=== PATIENT | male | born 1995 | race Caucasian/White ===

== ENCOUNTER 2019-11-11 20:36 | Emergency (ER) | payer OTHER ==
[2019-11-11] MEDS ORDERED: FENTANYL CITR 100 MCG/2 ML ONE (21:01)
--- NOTE | 2019-11-11 23:30 | ER ---
Nurse's Notes [facility] Name: Binh Us Age: 23 yrs Sex: Male : 1995 Arrival Date: 11/11/2019 Time: 20:42 Bed 5 Private MD: Diagnosis: Pain in left hip;Fall on same level from slipping, tripping and stumbling Presentation: 11/10 20:42 Chief complaint: EMS states: "The pt was attepmting to sit down in a chair when he jd3 twisted the wrong way and fell. 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 no LOC or report of any other injury.". Coronavirus screen: At this time, the client does not indicate any symptoms associated with coronavirus-19. Ebola Screen: Patient negative for fever greater than or equal to 101.5 degrees Fahrenheit, and additional compatible Ebola Virus Disease symptoms. Initial Sepsis Screen: Does the patient meet any 2 criteria? No. Patient's initial sepsis screen is negative. Does the patient have a suspected source of infection? No. Patient's initial sepsis screen is negative. Risk Assessment: Do you want to hurt yourself or someone else? Patient reports no desire to harm self or others. Onset of symptoms was November 11, 2019. 20:42 Method Of Arrival: EMS: [facility] jd3 20:42 Acuity: JERRY 4 jd3 Historical: - Allergies: 20:45 Morphine; jd3 - Home Meds: 20:45 None [Active]; jd3 - PSHx: 20:45 left hip sx; jd3 - Immunization history:: Adult Immunizations up to date. - Social history:: Smoking status: Patient reports the use of cigarette tobacco products, smokes one pack cigarettes per day. Screenin:55 Abuse screen: Denies threats or abuse. Denies injuries from another. Nutritional rr5 screening: No deficits noted. Tuberculosis screening: No symptoms or risk factors identified. Fall Risk Fall in past 12 months (25 points). Gait- Impaired (20 pts.). Total Dent Fall Scale indicates High Risk Score (45 or more points). Fall prevention measures have been instituted. Side Rails Up X 2 Placed Close to Nursing Station Frequent Obs/Assessments Occuring As available patient and family educated on Fall Prevention Program and Strategies. Assessment: 20:40 General: Appears in no apparent distress. uncomfortable, Behavior is calm, cooperative, rr5 appropriate for age. 20:40 Pain: Complains of pain in left lower back Pain radiates to left leg Pain currently is rr5 5 out of 10 on a pain scale. Quality of pain is described as aching, Pain began suddenly, Is intermittent. Neuro: Level of Consciousness is awake, alert, obeys commands, Oriented to person, place, time, situation. Cardiovascular: Capillary refill < 3 seconds Patient's skin is warm and dry. Respiratory: Airway is patent Respiratory effort is even, unlabored, Respiratory pattern is regular, symmetrical. GI: No signs and/or symptoms were reported involving the gastrointestinal system. : No signs and/or symptoms were reported regarding the genitourinary system. EENT: No signs and/or symptoms were reported regarding the EENT system. Derm: Skin is intact, is healthy with good turgor, Skin temperature is warm. Musculoskeletal: Capillary refill < 3 seconds, Reports pain in left lower back. 22:17 Reassessment: Patient and/or family updated on plan of care and expected duration. Pain ea level reassessed. Patient is alert, oriented x 3, equal unlabored respirations, skin warm/dry/pink. 22:58 Reassessment: Patient appears in no apparent distress at this time. Patient is alert, rr5 oriented x 3, equal unlabored respirations, skin warm/dry/pink. Patient states symptoms have improved. 11/11 00:15 Reassessment: Patient appears in no apparent distress at this time. Patient is alert, rr5 oriented x 3, equal unlabored respirations, skin warm/dry/pink. discharge instruction given and explained without complaints made. awaiting for the CT and xray copy Patient states symptoms have improved. Vital Signs: 11/10 20:45 BP 168 / 101; Pulse 103; Resp 19 S; Temp 99.2(O); Pulse Ox 100% on R/A; Weight 95.25 kg jd3 (R); Height 5 ft. 8 in. (172.72 cm) (R); Pain 5/10; 22:00 BP 155 / 78; Pulse 100; Resp 16; Pulse Ox 98% ; Pain 4/10; rr5 22:58 BP 137 / 89; Pulse 92; Resp 17; Pulse Ox 99% ; Pain 3/10; rr5 11/11 00:00 BP 121 / 85; Pulse 90; Resp 16; Pulse Ox 98% on R/A; rr5 11/10 20:45 Body Mass Index 31.93 (95.25 kg, 172.72 cm) jd3 ED Course: 11/10 20:42 Patient arrived in ED. jd3 20:43 Simba Alcala PA is PHCP. cp 20:43 Mariano Kim MD is Attending Physician. cp 20:44 Triage completed. jd3 20:45 David Kohler RN is Primary Nurse. rr5 20:46 Arm band placed on. jd3 20:50 Missed attempt(s): 20 gauge in right antecubital area. ea 20:55 Patient has correct armband on for positive identification. Bed in low position. Call rr5 light in reach. Side rails up X2. Pulse ox on. NIBP on. 21:17 Inserted saline lock: 20 gauge in right wrist, using aseptic technique. rr5 21:28 XRAY Pelvis In Process Unspecified. EDMS 21:28 XRAY Hip LEFT 2 view In Process Unspecified. EDMS 22:08 CT Pelvis wo Cont In Process Unspecified. EDMS 11/11 00:15 No provider procedures requiring assistance completed. IV discontinued, intact, rr5 bleeding controlled, No redness/swelling at site. Pressure dressing applied. Administered Medications: 11/10 21:17 Drug: fentaNYL (PF) 25 mcg {Note: rass 0.} Route: IVP; Site: right wrist; rr5 22:20 Follow up: Response: No adverse reaction; RASS: Alert and Calm (0) rr5 23:27 Drug: TORadol - Ketorolac 15 mg Route: IVP; Site: right forearm; ea 11/11 00:15 Follow up: Response: No adverse reaction; Pain is decreased rr5 00:01 Not Given (Other Intervention Used): fentaNYL (PF) 25 mcg IVP once; RASS on ADMIN: rr5 Combtv4, Very Agttd3, Agttd2, Rstlss1, AlertClm0, Drwsy-1, Lt Sdtn-2, Mod Sdtn-3, Dp Sdtn-4, UnArsble-5 Outcome: 11/10 23:29 Discharge ordered by . flory 11/11 00:15 Discharged to home via wheelchair. rr5 Condition: stable Discharge instructions given to patient, Instructed on discharge instructions, follow up and referral plans. medication usage, Demonstrated understanding of instructions, follow-up care, medications, Prescriptions given X 2. 00:34 Patient left the ED. rr5 Signatures: Dispatcher [employer] EDMS Simba Alcala PA PA cp Antunez, Elena RN Joel Silverman ea, RN RN jDavid Harrison RN RN rr5
--- NOTE | 2019-11-11 23:30 | EDPHYS ---
[facility] Name: Binh Us Age: 23 yrs Sex: Male : 1995 Arrival Date: 11/11/2019 Time: 20:42 Bed 5 Private MD: ED Physician Mariano Kim HPI: 11/10 21:00 This 23 yrs old Male presents to ER via EMS with complaints of left hip pain. cp 21:00 The patient or guardian reports decreased range of motion, pain. sustained from a fall, cp from a standing position, The patient is not able to ambulate. Patient is not able to bear weight. The complaints affect the left hip. Onset: The symptoms/episode began/occurred just prior to arrival. 21:00 Associated signs and symptoms: Loss of consciousness: the patient experienced no loss cp of consciousness, Pertinent negatives: low back pain. Historical: - Allergies: 20:45 Morphine; jd3 - Home Meds: 20:45 None [Active]; jd3 - PSHx: 20:45 left hip sx; jd3 - Immunization history:: Adult Immunizations up to date. - Social history:: Smoking status: Patient reports the use of cigarette tobacco products, smokes one pack cigarettes per day. ROS: 21:05 MS/extremity: Positive for decreased range of motion, pain, of the left hip, Negative cp for deformity, paresthesias. 21:05 Constitutional: Negative for body aches, chills, fever. cp 21:05 Neck: Negative for pain with movement, pain at rest, stiffness. 21:05 Cardiovascular: Negative for chest pain, palpitations. 21:05 Respiratory: Negative for cough, shortness of breath, wheezing. 21:05 Abdomen/GI: Negative for abdominal pain, nausea, vomiting, and diarrhea. 21:05 Back: Negative for pain at rest, pain with movement, radiated pain. 21:05 Neuro: Negative for altered mental status, headache, loss of consciousness, syncope. 21:05 All other systems are negative. Exam: 21:10 Constitutional: The patient appears in no acute distress, alert, awake, non-toxic, well cp developed, well nourished, uncomfortable. 21:10 Head/Face: Normocephalic, atraumatic. cp 21:10 Neck: C-spine: vertebral tenderness, is not appreciated, crepitus, is not appreciated, ROM/movement: is normal, is supple, without pain, no range of motions limitations. 21:10 Chest/axilla: Inspection: normal, Palpation: is normal, no crepitus, no tenderness. 21:10 Cardiovascular: Rate: tachycardic, Rhythm: regular. 21:10 Respiratory: the patient does not display signs of respiratory distress, Respirations: normal. 21:10 Abdomen/GI: Inspection: abdomen appears normal, Palpation: abdomen is soft and non-tender, in all quadrants. 21:10 Back: pain, is absent. 21:10 Musculoskeletal/extremity: Extremities: grossly normal except: noted in the left hip: decreased ROM, pain, tenderness, There is no evidence of deformity, ROM: limited passive range of motion due to pain, in the left hip, Perfusion: the extremity is normally perfused throughout, Sensation intact. 21:10 Neuro: Orientation: to person, place \T\ time. Mentation: is normal. Vital Signs: 20:45 BP 168 / 101; Pulse 103; Resp 19 S; Temp 99.2(O); Pulse Ox 100% on R/A; Weight 95.25 kg jd3 (R); Height 5 ft. 8 in. (172.72 cm) (R); Pain 5/10; 22:00 BP 155 / 78; Pulse 100; Resp 16; Pulse Ox 98% ; Pain 4/10; rr5 22:58 BP 137 / 89; Pulse 92; Resp 17; Pulse Ox 99% ; Pain 3/10; rr5 11/11 00:00 BP 121 / 85; Pulse 90; Resp 16; Pulse Ox 98% on R/A; rr5 11/10 20:45 Body Mass Index 31.93 (95.25 kg, 172.72 cm) jd3 MDM: 11/10 20:55 Patient medically screened. cp 21:00 Differential diagnosis: hip fracture, intertrochanteric fracture, femoral neck cp fracture, femoral shaft fracture, contusion, dislocation. 23:28 Data reviewed: vital signs, nurses notes, radiologic studies, CT scan, plain films, I cp have discussed the patient's presentation/case with the attending Emergency Department Physician; and as a result, I will discharge patient. 23:28 Counseling: I had a detailed discussion with the patient and/or guardian regarding: the cp historical points, exam findings, and any diagnostic results supporting the discharge/admit diagnosis, radiology results, to return to the emergency department if symptoms worsen or persist or if there are any questions or concerns that arise at home. 23:28 Response to treatment: the patient's symptoms have markedly improved after treatment, cp and as a result, I will discharge patient. Medical screen evaluation completed. [facility] emergency medical condition absent. ED course: CT negative for acute fracture and/or dislocation. Pain improved. Will discharge to home for continued monitoring. 11/10 20:45 Order name: XRAY Pelvis cp 11/10 20:45 Order name: XRAY Hip LEFT 2 view cp 11/10 21:31 Order name: CT Pelvis wo Cont cp 11/10 20:45 Order name: IV; Complete Time: 21:21 cp Administered Medications: 21:17 Drug: fentaNYL (PF) 25 mcg {Note: rass 0.} Route: IVP; Site: right wrist; rr5 22:20 Follow up: Response: No adverse reaction; RASS: Alert and Calm (0) rr5 23:27 Drug: TORadol - Ketorolac 15 mg Route: IVP; Site: right forearm; ea 11/11 00:15 Follow up: Response: No adverse reaction; Pain is decreased rr5 00:01 Not Given (Other Intervention Used): fentaNYL (PF) 25 mcg IVP once; RASS on ADMIN: rr5 Combtv4, Very Agttd3, Agttd2, Rstlss1, AlertClm0, Drwsy-1, Lt Sdtn-2, Mod Sdtn-3, Dp Sdtn-4, UnArsble-5 Disposition: 11/10 23:45 Chart complete. cp 11/11 00:54 Co-signature as Attending Physician, Mariano Kim MD. pkl Disposition: 11/11/19 23:29 Discharged to Home. Impression: Pain in left hip, Fall on same level from slipping, tripping and stumbling. - Condition is Stable. - Discharge Instructions: Hip Pain. - Prescriptions for Cyclobenzaprine 10 mg Oral Tablet - take 1 tablet by ORAL route every 8 hours As needed no driving while taking medication; 20 tablet. Tramadol 50 mg Oral Tablet - take 1 tablet by ORAL route every 8 hours as needed; 12 tablet. Naprosyn 500 mg Oral Tablet - take 1 tablet by ORAL route 2 times per day take with food; 20 tablet. - Medication Reconciliation Form, Thank You Letter, Antibiotic Education, Prescription Opioid Use form. - Follow up: Private Physician; When: 2 - 3 days; Reason: Recheck today's complaints. - Problem is new. - Symptoms have improved. Signatures: Dispatcher [employer] EDMS Mariano Kim MD MD pkl Page, Corey, PA PA cp Candida Hilton RN RN ea Davies, Jonathon, RN RN jDavid Harrison RN RN rr5 Corrections: (The following items were deleted from the chart) 11/10 21:07 21:05 This 23 yrs old Male presents to ER via EMS with complaints of left cp lower back pain. cp 11/11 00:01 11/10 23:19 Crutches ordered. cp rr5 11/11 00:34 11/10 23:29 11/11/2019 23:29 Discharged to Home. Impression: Pain in left hip; Fall on rr5 same level from slipping, tripping and stumbling. Condition is Stable. Forms are Medication Reconciliation Form, Thank You Letter, Antibiotic Education, Prescription Opioid Use. Follow up: Private Physician; When: 2 - 3 days; Reason: Recheck today's complaints. Problem is new. Symptoms have improved. cp
[2019-11-11] MEDS ORDERED: KETOROLAC 30 MG/ML INJ ONE (23:36)
[2019-11-12 00:40] VITALS: TEMP 99.2
[2019-11-12 00:43] VITALS: BP 137/89; O2SAT 99
--- NOTE | 2019-11-12 07:51 | RAD REPORT ---
EXAM DESCRIPTION: RAD - Pelvis - 11/11/2019 9:28 pm CLINICAL HISTORY: Pelvic pain status post injury FINDINGS: Pins have been placed into the proximal left femur Deformity involves left femoral head and neck likely secondary to old trauma No acute fracture or dislocation seen
--- NOTE | 2019-11-12 07:52 | RAD REPORT ---
EXAM DESCRIPTION: RAD - Hip Left 2 View - 11/11/2019 9:28 pm CLINICAL HISTORY: Left hip pain status post injury FINDINGS: Pins have been placed into the proximal left femur Deformity involves left femoral head and neck likely secondary to old trauma No acute fracture or dislocation seen
--- NOTE | 2019-11-12 08:30 | RAD REPORT ---
EXAM DESCRIPTION: CT - Pelvis Wo Cont - 11/12/2019 6:59 am CLINICAL HISTORY: Left hip pain. COMPARISON: None. TECHNIQUE: CT scan of the pelvis was performed without IV contrast. This exam was performed accord ing to our departmental dose-optimization program, which includes automated exposure control, adjustm ent of the mA and/or kV according to patient size and/or use of iterative reconstruction technique. FINDINGS: No acute fracture or dislocation is seen. The bilateral sacroiliac joints, pubic symphysis , and right hip joint are preserved. There is a chronic deformity of the proximal left femur with fla ttening of the femoral head and areas of subchondral collapse and fragmentation along with prior fixa tion of the left femoral intertrochanteric region. There is asymmetric fatty atrophy of the left hip musculature. The visualized tendons are grossly intact. The visualized intrapelvic structures demonst rate no acute findings. IMPRESSION: 1. No acute pelvic fracture. 2. 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 Electronically signed by: Edmar Nicholas MD 11/11/2019 10:29 PM CDT Due to temporary technical issues with the PACS/Fluency reporting system, reports are being signed by the in house radiologist without review as a courtesy to ensure prompt reporting. The interpreting r adiologist is fully responsible for the content of the report.
== END 2019-11-12 00:34 | disposition home or self-care (01) ==
LOC: ER 20:36
DX: M25.552 Pain in left hip (principal); F17.210 Nicotine dependence, cigarettes, uncomplicated; W01.0XXA Fall on same level from slipping, tripping and stumbling without subsequent striking against object, initial encounter; Y93.89 Activity, other specified; Y92.9 Unspecified place or not applicable; Z88.6 Allergy status to analgesic agent
CPT/HCPCS: 72192; 72170; 73502; 99284; J3010